=== PATIENT | male | born 2000 | race Caucasian/White ===

== ENCOUNTER → 2020-02-04 11:32 | Outpatient (CLI) | payer OTHER, SELFPAY ==
[2020-02-04 15:19] LABS: Absolute Lymphocyte Count 1.49 X10^3/uL (0.83-4.51); Absolute Neutrophil Count 6.4 X10^3/uL (2.0-7.7); Basophil# 0.07 X10^3/uL; Basophil% 0.8 % (0-1); Eosinophil# 0.25 X10^3/uL; Eosinophils% 2.9 % (0-5); Hematocrit 38.1 % (40-54); Hemoglobin 11.8 g/dL (13.0-16.5); Lymphocyte # 1.49 X10^3/ul (4.0); Lymphocyte % 17.1 % (19-41); Mean Corpuscular Hgb 24.5 pg (27.0-32.0); Mean Platelet Vol. 9.7 fl (6.2-12.0); Monocyte# 0.42 X10^3/uL; Monocyte% 4.8 % (0-10); NRBC Flagged by Analyzer 0 % (0-5); Neutrophil # 6.42 X10^3/uL (2.7-7.7); Neutrophil % 73.8 % (47-70); Platelet Count 440 K/mm3 (150-450); RBC Distribution Width CV 14.7 % (11.6-14.6); Red Blood Count 4.82 M/mm3 (4.6-6.2); White Blood Count 8.7 K/mm3 (4.4-11.0)
[2020-02-04 15:41] LABS: ALB/GLOB Ratio 0.8 RATIO (0.9-2.4); AST(SGOT) 20 U/L (15-37); Alanine Aminotransfer ALT/SGPT 28 U/L (16-61); Albumin, Serum 3.5 g/dL (3.2-5.0); Alkaline Phosphatase 78 U/L (45-117); Anion Gap 4 (5-15); BUN 12 mg/dL (7-18); BUN/Creat Ratio 18.7 RATIO (10-20); Calcium,Total 9.4 mg/dL (8.5-10.1); Chloride 105 mmol/L (98-107); Cholesterol 174 mg/dL (200); Creatinine, Serum 0.64 mg/dL (0.70-1.30); EST Glomerular Filtration Rate 167 mL/min (>60); Est Glom Filt Rate - Afr Amer 202 mL/min (>60); Globulin 4.3 g/dL (2.2-4.2); Glucose 84 mg/dL (74-106); High Density Lipoprotein 37 mg/dL; Potassium 3.9 mmol/L (3.5-5.1); Protein, Total 7.8 g/dL (6.4-8.2); Sodium Level 138 mmol/L (136-145); Thyroid Stim Hormone (TSH) 1.93 uIU/mL (0.358-3.74); Triglycerides 137 mg/dL; Very Low Density Lipoprotein 27 mg/dL (5-40)
[2020-02-04 17:21] LABS: Ferritin 78 ng/mL (26-388); Iron 32 ug/dL (65-175); Iron Binding Capacity,Total 310 ug/dL (250-450); PERCENT IRON SATURATION 10.3 % (15.0-55.0)
== END ==
PROVIDERS: PCP Family Medicine; Referring Provider Family Medicine; Visit Provider Family Medicine
DX: E66.01 Morbid (severe) obesity due to excess calories (principal)
CPT/HCPCS: 36415; 80053; 80061; 82728; 83540; 83550; 84443; 85025

== ENCOUNTER → 2020-02-16 12:40 | Outpatient (CLI) | payer OTHER, SELFPAY ==
--- NOTE | 2020-02-16 12:46 | VDLE_ITS ---
Reason For Study: edema RIGHT LEFT GSV is normal. GSV is normal. CFV is compressible, spontaneous, phasic, CFV is compressible, spontaneous, phasic, competent and demonstrates normal competent, and demonstrates normal augmentation. augmentation. FV is compressible, spontaneous, phasic, FV is compressible, spontaneous, phasic, competent and demonstrates normal competent and demonstrates normal augmentation. augmentation. POP V is compressible, spontaneous, phasic, POP V is compressible, spontaneous, phasic, competent and demonstrates normal competent and demonstrates normal augmentation. augmentation. T/P Trunk is compressible. T/P Trunk is compressible. PTV is compressible. PTV is compressible. RT PerV is compressible. LT PerV is compressible. Procedure This is a venous duplex using B-mode, color flow and spectral Doppler. Exam performed in department. The exam was of fair technical quality due to pt body habitus and edema. A preliminary report was called and/or faxed to Dr. Connell. Interpretation Summary Deep veins of the lower extremities are bilaterally patent and compressible segmentally. There is no evidence of deep vein thrombosis on either side. Valvular competence appears intact within the proximal deep venous systems bilaterally. The great saphenous veins appear bilaterally patent and compressible segmentally. Ordering Physician: Juwan Connell Performed By: Hill Rivera RVT
== END ==
LOC: CVS 12:43
PROVIDERS: PCP Family Medicine; Referring Provider Family Medicine; Visit Provider Family Medicine
DX: R60.0 Localized edema (principal)
CPT/HCPCS: 93970

== ENCOUNTER → 2020-11-30 09:07 | Outpatient (CLI) | payer BC, SELFPAY ==
[2020-11-30 10:23] LABS: Erythrocyte Sedimentation Rate 81 mm/hr (0-20)
[2020-11-30 10:28] LABS: Absolute Neutrophil Count 5.1 X10^3/uL (2.0-7.7); Basophil# 0.07 X10^3/uL; Eosinophil# 0.08 X10^3/uL; Eosinophils% 1.1 % (0-5); Hemoglobin 10.8 g/dL (13.0-16.5); Mean Corp Hgb Conc 30.9 g/dL (32-36); Mean Corpuscular Hgb 24.2 pg (27.0-32.0); Mean Corpuscular Volume 78.5 fL (80-94); Mean Platelet Vol. 10.3 fl (6.2-12.0); Monocyte# 0.38 X10^3/uL; Monocyte% 5.2 % (0-10); NRBC Flagged by Analyzer 0 % (0-5); Neutrophil # 5.11 X10^3/uL (2.7-7.7); Neutrophil % 70.4 % (47-70); POSITIVE COUNT YES; RBC Distribution Width CV 15.9 % (11.6-14.6); RBC Distribution Width SD 44.8 fl (35.1-43.9); Red Blood Count 4.46 M/mm3 (4.6-6.2); White Blood Count 7.3 K/mm3 (4.4-11.0)
[2020-11-30 10:36] LABS: ALB/GLOB Ratio 0.6 RATIO (0.9-2.4); AST(SGOT) 31 U/L (15-37); Alanine Aminotransfer ALT/SGPT 47 U/L (16-61); Alkaline Phosphatase 70 U/L (45-117); Anion Gap 8 (5-15); BUN 9 mg/dL (7-18); BUN/Creat Ratio 11.7 RATIO (10-20); Calcium,Total 8.9 mg/dL (8.5-10.1); Chloride 105 mmol/L (98-107); Creatinine, Serum 0.77 mg/dL (0.70-1.30); EST Glomerular Filtration Rate 134 mL/min (>60); Est Glom Filt Rate - Afr Amer 162 mL/min (>60); Globulin 5.2 g/dL (2.2-4.2); Glucose 103 mg/dL (74-106); Potassium 3.9 mmol/L (3.5-5.1); Prealbumin 19.3 mg/dL (20.0-40.0); Protein, Total 8.2 g/dL (6.4-8.2); Sodium Level 137 mmol/L (136-145)
[2020-11-30 10:58] LABS: Differential Indicated SCAN CRITERIA MET
[2020-11-30 11:00] LABS: Platelet Estimate ADEQUATE (ADEQ)
== END ==
LOC: MFPLAB 09:08
PROVIDERS: PCP Family Medicine; Referring Provider Family Medicine; Visit Provider Nurse Practitioner Family
DX: I89.0 Lymphedema, not elsewhere classified (principal); T81.89XA Other complications of procedures, not elsewhere classified, initial encounter
CPT/HCPCS: 36415; 80053; 84134; 85025; 85652; 86140

== ENCOUNTER 2020-12-01 08:30 | Outpatient (RCR) | payer BC, SELFPAY ==
[2020-11-24 08:16] VITALS: BP 163/88; PULSE 101; RESP 22; TEMP 36.5
--- NOTE | 2020-11-24 12:36 | PCM.WC.HP ---
History of Present Illness Date of Service: 11/24/20 Chief Complaint: Right lower extremity swelling and blisters History of Wound: The patient is a pleasant 20-year-old male presents to the wound healing center today (11/24/2020) for an initial evaluation of the swelling and blistering of the right lower extremity. He has a past medical history of anemia, right lower extremity lymphedema, and morbid obesity. He is a non-smoker. He was evaluated by his primary care provider Dr. Connell on 11/15/2020. At that time, he reported clear fluid seeping from his right lower extremity that began over the prior week. He was started on Lasix and has noted significant improvement in the swelling of his right lower extremity. He developed blisters of the right lower extremity, which later opened. He has been covering the open/seeping areas of his legs with Neosporin and gauze. He does not use compression. He reports he has been elevating his right leg as much as possible when seated. 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 He has never been evaluated at the lymphedema clinic, and does not have lymphedema pumps. He had bilateral lower extremity venous studies in February 2020 which showed no evidence of DVT and no venous disease. He has no history of blood clots. The patient denies fever, chills, nausea, vomiting, or diarrhea. The patient has not had increased redness or purulent/malodorous drainage from affected area. He denies calf pain and right lower extremity warmth. [facility] Medical History (Updated 11/24/20 @ 12:53 by Coleen Vidse [employer], [employer]) Iron deficiency anemia Lymphedema of right lower extremity Morbid obesity Venous ulcer of right leg ROS Constitutional Constitutional: Denies chills, fever(s) or night sweats Eyes Eyes: Denies change in vision or double vision ENT HEENT: Denies lip swelling or tongue swelling Cardiovascular Cardiovascular: Reports leg edema; Denies chest pain or palpitations Respiratory/Chest Respiratory/Chest: Denies cough, shortness of breath at rest, shortness of breath with exertion or wheezing Gastrointestinal Gastrointestinal: Denies diarrhea, nausea or vomiting Genitourinary Genitourinary: Denies dysuria or hematuria Musculoskeletal Musculoskeletal: Denies abnormal gait, extremity pain, muscle weakness, numbness or tingling Integumentary Integumentary: Reports wounds; Denies rash Neurologic Neurologic: Denies abnormal gait, abnormal speech or focal weakness Endocrine Endocrinology: Denies cold intolerance, heat intolerance, polydipsia or polyuria Hematologic/Lymphatic Hematologic/Lymphatic: Reports anemia and lymphadenopathy; Denies easy bleeding or easy bruising Vital Signs Vital Signs Vital Signs: 11/24/20 08:16 Temperature 97.7 F L Temperature Source Temporal Pulse Rate 101 H Respiratory Rate 22 H Blood Pressure 163/88 H Blood Pressure Mean 113 Blood Pressure Source Monitor Blood Pressure Position Sitting Blood Pressure Location Left Arm Physical Exam Const alert and no apparent distress General Appearance: cooperative, comfortable and well kempt Nutritional Appearance: morbidly obese HEENT Head and Scalp: normocephalic and atraumatic Eyes EOMs intact bilaterally Neck supple and no JVD Lymph Lymphatic: lymphedema moderate (Right lower extremity) Resp normal respiratory effort, normal air movement and no use of accessory muscles Auscultation: clear to auscultation bilaterally; Negative for crackles, rales, rhonchi or wheezes Cardio regular rate and regular rhythm GI normal to inspection, nondistended, normoactive bowel sounds Extremity normal capillary refill, no joint enlargement and no calf tenderness General Extremity: edema right lower extremity moderate; Negative for clubbing or cyanosis Peripheral Pulses: Yes dorsalis pedis pulses present bilateral 2+ Skin General Skin Exam: dry skin Wounds: wounds noted No malodorous Wound Narrative: Small superficial ulceration of the right anterior walter with small amount of slough present. No tunneling, undermining, or probing to bone. No subcutaneous exposure. No periulcer erythema or warmth, no tenderness to palpation. Skin of right lower extremity is dry with generalized excoriation and crusting present. Neuro oriented x3, moves all extremities and no focal motor deficits Psych mental status grossly normal, cooperative and affect normal Debridement Note Debridement Note Post-Debridement Measurements and Additional Note: Post-Debridement Measurements/Treatment - Nurse 1 - General Ulcer Assessment Start: 11/24/20 08:16 Freq: Status: Active Protocol: [email or web address].[email or web address] Activity Type Activity Date Activity User E-Sign Co-Sign Detail Recorded Client Recorded Date Recorded By Document 11/24/20 08:16 ML [id number] 11/24/20 08:29 ML 11/24/20 08:16 - Today's Visit Information Type of service Initial Visit Arrival Mode Ambulatory Transfer Assistance None Patient Identification Verified (Name & Yes ) Patient Requires Transmission-Based No Precautions Safety Precautions NA Vital Signs Temperature (97.8 F-99.1 F) 97.7 F L Temperature Source Temporal Pulse Rate (60-100) 101 H Pulse Location Monitor Respiratory Rate (12-18) 22 H Respiratory rate source Observation Blood Pressure (90/60-120/80) 163/88 H Blood Pressure Mean 113 Source Monitor Position Sitting Blood Pressure Location Left Arm History Since Last Visit- (Skip if this is Patient's initial visit) Have you changed medications since your No last visit? Any new allergies or adverse reactions No Had a fall/change in ADL's that may No increase risk of falls Signs or symptoms of abuse and/or No neglect since last visit Have you been in the hospital since your No last visit? Has dressing in place as prescribed No Has compression in place as prescribed N/A Has offloadiing in place as prescribed N/A Experienced any changes in pain level or No management Left Footwear Slipper Right Footwear Slipper Pain Scale: 0-10 Numeric Is Patient Pain Free? Yes - Nurse 1 - General Ulcer Measurement Start: 11/24/20 08:16 Freq: Status: Active Protocol: Activity Type Activity Date Activity User E-Sign Co-Sign Detail Recorded Client Recorded Date Recorded By Document 11/24/20 08:16 ML [id number] 11/24/20 08:29 ML 11/24/20 08:16 Wound Center Nurse 1 Right Calf (cm) 79 Right Ankle (cm) 54 - Nurse 2 - General Ulcer CM Notes Start: 11/24/20 08:16 Freq: Status: Active Protocol: Activity Type Activity Date Activity User E-Sign Co-Sign Detail Recorded Client Recorded Date Recorded By Document 11/24/20 11:26 PL [id number] 11/24/20 11:31 PL 11/24/20 11:26 Wound Center Nurse 2 #1 R ant Leg -Time 08:51 -Correct Patient Yes -Correct Side, Site, Position Yes -Correct Procedure Yes -Procedure Performed Yes -Type of Procedure Debridement -Clinical Debridement Epidermis / Dermis -Tissue Removed Epidermis, Dermis -Post Debridement (cm) - Length 1.5 -Post Debridement (cm) - Width 2.0 -Post Debridement (cm) - Depth 0.1 -Total Square (Post) (cm) 3.00 -Area of Debridement (cm) - Length 1.5 -Area of Debridement (cm) - Width 2.0 -Total Square (Area) (cm) 3.00 -Tunneling No -Undermining/Tunneling No -Circular Undermining No -Wound/Ulcer Outcome Not Healed -Ulcer Cleansing Rinsed/ Irrigated with Saline -Foul Odor after Cleansing No -Bioengineered Tissue No -Bleeding Controlled with Pressure -Treatment Response Procedure Tolerated Well -Debridement - Open, 1st 20sq cm Yes Pain Scale: 0-10 Numeric Is Patient Pain Free? Yes WC - Nurse 3 - General Ulcer D/C NN Start: 11/24/20 08:16 Freq: Status: Active Protocol: Activity Type Activity Date Activity User E-Sign Co-Sign Detail Recorded Client Recorded Date Recorded By Document 11/24/20 09:34 ML [id number] 11/24/20 09:35 ML 11/24/20 09:34 Wound Care Nurse 3 Right -Multi-Layered Wrap Application Unna Boot - Right ($) Wound debrided: Right anterior leg Laterality: Right Type of Debridement: Excisional debridement Anesthesia Used: 5% Lidocaine Gel and Cetacaine Depth: Down to and including healthy tissue Percentage of wound debrided: 100 Instrument Used: 5mm curette Tissue Removed: Slough and devitalized tissue Severity: Limited To Skin Breakdown Amount of bleeding with debridement: None Patient tolerated procedure: Patient tolerated procedure well Charges/Coding Visit Charges Office Visits / Consults: 37418 OV L4 New (+ 35021 debridement CPT) Assessment/Plan Assessment/Plan (1) Venous ulcer of right leg: CODE(S): I83.019 - Varicose veins of right lower extremity with ulcer of unspecified site; L97.919 - Non-pressure chronic ulcer of unspecified part of right lower leg with unspecified severity (2) Lymphedema of right lower extremity: CODE(S): I89.0 - Lymphedema, not elsewhere classified (3) Edema of right lower extremity: CODE(S): R60.0 - Localized edema (4) Morbid obesity: CODE(S): E66.01 - Morbid (severe) obesity due to excess calories (5) Iron deficiency anemia: CODE(S): D50.9 - Iron deficiency anemia, unspecified QUALIFIERS: Iron deficiency anemia type: unspecified iron deficiency Qualified Code(s): D50.9 - Iron deficiency anemia, unspecified PLAN: Debridement performed today in clinic as annotated above. Hydrogel and gauze applied to the right anterior lower leg ulcer. Unna boots applied to the right lower extremity. At home wound-care instructions: Keep Unna boot in place until nurse visit on Friday. Keep the Unna boot clean and dry. If the Unna boot begins to fall at any time, contact the wound healing center. If anytime the Unna boot becomes tight, elevate the leg. If tightness does not resolve with leg elevation, or you experience discoloration or numbness/tingling of the toes, contact the wound healing center or remove the Unna boot. Off-loading: Avoid prolonged standing and/or dangling of legs. When seated, feet should be elevated at chest level. Frequent ambulation is encouraged. The patient reports he is unable to elevate feet, walk, or take breaks during his vault cashier shifts at [employer]. He will be given a work excuse until his next visit on 12/01/2020. Discussed with the patient that he should be able to return to work at that time. Disability will not be ordered, as this is a chronic condition for which management is attainable. Diet: Patient encouraged to increase protein intake while taking caution to avoid high carbohydrate and/or sugar intake. Labs/cultures/imaging: Cultures deferred today. Venous studies from February 2020 reviewed as annotated above. Routine baseline lab work ordered (CBC D, CMP, ESR, CRP, prealbumin). Follow-up: Return to clinic in 1 week for re-evaluation. Return sooner or report to the emergency room should symptoms worsen, or new symptoms arise. When wounds are healed, patient will be referred to the lymphedema clinic at [facility] for ongoing management of his chronic lymphedema of the right lower extremity. I feel the patient would benefit from the use of a lymphedema pump, and the lymphedema clinic at [facility] can assist in obtaining this.
[2020-11-28 10:57] VITALS: BP 183/104; PULSE 97; RESP 18; TEMP 36.4
[2020-12-01 08:30] VITALS: BP 156/99; TEMP 36.4
--- NOTE | 2020-12-01 14:08 | PCM.WC.PN ---
History of Present Illness Date of Service: 12/01/20 Chief Complaint: Right lower extremity swelling and blisters History of Wound: The patient is a pleasant 20-year-old male presents to the wound healing center today (11/24/2020) for an initial evaluation of the swelling and blistering of the right lower extremity. He has a past medical history of anemia, right lower extremity lymphedema, and morbid obesity. He is a non-smoker. He was evaluated by his primary care provider Dr. Connell on 11/15/2020. At that time, he reported clear fluid seeping from his right lower extremity that began over the prior week. He was started on Lasix and has noted significant improvement in the swelling of his right lower extremity. He developed blisters of the right lower extremity, which later opened. He has been covering the open/seeping areas of his legs with Neosporin and gauze. He does not use compression. He reports he has been elevating his right leg as much as possible when seated. 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 He has never been evaluated at the lymphedema clinic, and does not have lymphedema pumps. He had bilateral lower extremity venous studies in February 2020 which showed no evidence of DVT and no venous disease. He has no history of blood clots. The patient denies fever, chills, nausea, vomiting, or diarrhea. The patient has not had increased redness or purulent/malodorous drainage from affected area. He denies calf pain and right lower extremity warmth. Progress of Wound: The patient's right lower extremity ulcer is healed today. There is some dryness at the site. His edema has significantly improved. He tolerated Unna boot as well. Excoriation and crusting of right lower extremity have resolved. Objective Data Objective Data Vital Signs: Vital Signs Temp Pulse Resp BP 97.6 F L 97 18 156/99 H 12/01/20 08:30 11/28/20 10:57 11/28/20 10:57 12/01/20 08:30 Oxygen Delivery Method Room Air Charges/Coding Visit Charges Office Visits / Consults: 31417 OV L3 Est Physical Exam Const alert and no apparent distress General Appearance: cooperative, comfortable and well kempt Nutritional Appearance: morbidly obese HEENT Head and Scalp: normocephalic and atraumatic Eyes EOMs intact bilaterally Neck supple Lymph Lymphatic: lymphedema moderate (Right lower extremity) Resp normal respiratory effort Extremity normal capillary refill, no joint enlargement and no calf tenderness General Extremity: edema right lower extremity mild; Negative for clubbing or cyanosis Peripheral Pulses: Yes dorsalis pedis pulses present right 2+ Skin Wounds: Negative for wounds noted Wound Narrative: No wounds present. Mild dry skin at previous ulcer site. Generalized excoriation and crusting of right lower extremity has resolved. Neuro oriented x3 Psych mental status grossly normal, cooperative and affect normal Debridement Note Debridement Note No debridement was completed: No debridement was completed today Assessment/Plan Assessment/Plan (1) Venous ulcer of right leg: CODE(S): I83.019 - Varicose veins of right lower extremity with ulcer of unspecified site; L97.919 - Non-pressure chronic ulcer of unspecified part of right lower leg with unspecified severity (2) Lymphedema of right lower extremity: CODE(S): I89.0 - Lymphedema, not elsewhere classified (3) Edema of right lower extremity: CODE(S): R60.0 - Localized edema (4) Morbid obesity: CODE(S): E66.01 - Morbid (severe) obesity due to excess calories (5) Iron deficiency anemia: CODE(S): D50.9 - Iron deficiency anemia, unspecified QUALIFIERS: Iron deficiency anemia type: unspecified iron deficiency Qualified Code(s): D50.9 - Iron deficiency anemia, unspecified PLAN: The patient's right lower extremity ulcer is healed today. There is mild dryness at the previous site of ulcer. A small amount of hydrogel and gauze were applied to the previous ulcer site for hydration. The patient's right lower extremity was wrapped with a SurePress. At home wound-care instructions: Continue hydrogel and gauze to the previous ulcer site for the next week, or until dryness resolves. Continue use of SurePress to right lower extremity daily for compression. Off-loading: Avoid prolonged standing and/or dangling of legs. When seated, feet should be elevated at chest level. Frequent ambulation is encouraged. The patient is cleared to resume normal work duties without restriction. Diet: Patient encouraged to increase protein intake while taking caution to avoid high carbohydrate and/or sugar intake. Labs/cultures/imaging: Venous studies from February 2020 reviewed as annotated above. Lab work reviewed and discussed with patient. Labs (CBC D, CMP, ESR, CRP, prealbumin) significant for the following: CBCD: RBC 4.46 (L), hemoglobin 10.8 (L), hematocrit 35.0 (L) ESR: 81 (H) CMP: Albumin 3.0 (L) Prealbumin: 19.3 (L) CRP: 48.80 (H) Follow-up: A referral will be placed in the lymphedema clinic at [facility] [place]. They should reach out to you to schedule an appointment. Please reach out to the wound healing center if you do not hear from them within the next 1 to 2 weeks. Follow-up with the wound healing center as needed should new wounds develop.
== END 2020-12-01 11:12 | disposition home or self-care (01) ==
LOC: WC 08:30
PROVIDERS: PCP Family Medicine; Visit Provider Nurse Practitioner Family
DX: I83.019 Varicose veins of right lower extremity with ulcer of unspecified site (principal); M79.89 Other specified soft tissue disorders; L97.919 Non-pressure chronic ulcer of unspecified part of right lower leg with unspecified severity; I89.0 Lymphedema, not elsewhere classified; R60.0 Localized edema; E66.01 Morbid (severe) obesity due to excess calories; D50.9 Iron deficiency anemia, unspecified
CPT/HCPCS: 29580; 97597; 99213; G0463

== ENCOUNTER 2021-02-01 08:00 | Outpatient (RCR) | payer BC, SELFPAY ==
--- NOTE | 2020-12-19 07:42 | HP.OTEVAL ---
Patient's Visit Information ROBERT ROBERTS is a 20 year old M, referred to Occupational Therapy by JESSE Koehler, with a diagnosis of lymphedema. Date of Evaluation: 12/15/20 Occupational Therapist: Becky Romero, OTR/L, CHT - Subjective This 20 year old male was seen for LE lymphedema- pt states he has been having swelling for about three years but appears to be getting worse. pt states he went to the wound center due to a wound due to drainage. pt states his dads side of the family has a hx of lymphedema. 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 his lymphedema. - Lymphedema (Circumferential Measure) Mid-foot: right 38.5cm left 25cm Ankle: right 56cm left 30cm Lower calf: right 67cm left 35cm Largest calf: right 92cm left 53cm Below knee: right 60cm left 51cm Above knee: right 64cm left 60 - Lower Limb Functional Index Lower Extremity Functional Score: 71 - Goals Demonstrate a 20% reduction in edema by d/c: Yes Demonstrate adequate knowledge of self-bangaging by 1st week: Yes Demonstrate adequate knowledge of self-massage by 2nd week: Yes Demonstrate adequate knowledge skin care/prec by 2nd week: Yes Demonstrate adequate knowledge therapeutic exercises by d/c: Yes Select approp compression garment w/donning/care/wear by d/c: Yes Voice need to replace compression garment every 4-6mo by dc: Yes - Rehabilitation General Assessment: Pt demo with stage III lymphedema in right LE. pt demo with skin texture changes and fibrotic tissue. pt would benefit from skilled OT services to ed. pt on mtg, skin care and compression. Today therapist ed. pt on lymphedema, lymphedema treatments and compression devices. pt would benefit from home lymphedema compression pump- Due to limb size therapist worked with pt to find compression velcro compression device (Farrow wraps 30-40mmHg) to assist in softening fibrotic tissue. pt demo understanding and agree to POC. Rehabilitation Potential: Good - Anticipated Interventions Education re assistive Equipment, Education re Diagnosis, Manual Lymph Drainage, Education re Life-long lymphedema Management, Education re Self-Bandaging Techniques, Education re Skin Care and Precautions, Education re Self Massage Techniques, Education re Correct Donning Tech,Care&Wearing Sched Comp Garments, Home Program - Visit Plan Frequency: 1x/Week Duration: 4 Weeks TEXT: Thank you for the opportunity to evaluate your patient. For Medicare and Medicare HMO plans, please review the plan of care and approve it. It will need to be FAXED BACK to us at [phone] for Medicare purposes. Please let me know if there are questions or concerns regarding this plan of care. Physician Signature: Date:
--- NOTE | 2021-02-01 08:26 | HP.OTDCSUM ---
It has been my pleasure to treat ROBERT ROBERTS under orders from NASIR KoehlerC, for the diagnosis of lymphedema for a total of 5 visit(s). Please see the following information for a summary of their discharge status. % Improvement: 70 Objective/Function: right foot 25.5cm. right ankle 37cm. right lower calf 60cm. right calf 70cm down from 92cm. right below knee 58cm. pt has made gains with use of wraps- pt would benefit from use of compression pump to assist in pts mtg of lymphedema. Patient Goals: Learn how to Manage Lymphedema, Learn how to Apply Compression Stockings Other: use of compression alternatives as farrow wrap to assist in decreasing limb size Demonstrate a 20% reduction in edema by d/c: Yes Demonstrate adequate knowledge of self-bangaging by 1st week: Yes Demonstrate adequate knowledge of self-massage by 2nd week: Yes Demonstrate adequate knowledge skin care/prec by 2nd week: Yes Demonstrate adequate knowledge therapeutic exercises by d/c: Yes Select approp compression garment w/donning/care/wear by d/c: Yes Voice need to replace compression garment every 4-6mo by dc: Yes Plan: pt to continue with wraps. use of pool. lymph stim exercises. D/C with HEP Discharge Comments: pt was seen for inital eval and 4 additional OT sessions- pt has made gains in decreasing limb size and demo understanding of mtg lymphedema- pt would benefit from a home compression pump to assist in further success in mtg. LE lymphedema. pt agree to cont with HEP as insurance limited number of visits. If there are questions or concerns regarding this patient's occupational therapy, please fell free to call me at [phone]. Thank you for the referral of this patient. Sincerely, Becky Romero, OTR/L, CHT
== END 2021-02-01 19:00 | disposition home or self-care (01) ==
LOC: OT 08:00
PROVIDERS: PCP Family Medicine; Referring Provider Nurse Practitioner Family; Visit Provider Nurse Practitioner Family
DX: I89.0 Lymphedema, not elsewhere classified (principal)
CPT/HCPCS: 97166; 97530